=== PATIENT | female | born 1975 ===

== ENCOUNTER 2023-10-24 14:59 | Inpatient (IN) ==
[2023-10-24] MEDS ORDERED: Al Hydrox/Mg Hydrox/Simet LIQ 30 ML UDC PO PRN (16:59)
[2023-10-24] MEDS ORDERED: Nicotine GUM 2MG FRUIT FLAVOR PO PRN (17:00)
[2023-10-25 08:03] LABS: HDL Cholesterol 55.1 mg/dL
[2023-10-25] MEDS: Vitamin THERAPEUTIC TAB PO SCH (09:02)
[2023-10-25] MEDS: Paliperidone SUSTENNA 234 MG/1.5 ML IM ONE (13:15)
[2023-10-26] MEDS: OLANZapine IM (NF) 10 MG VIAL IM ONE (05:23)
[2023-10-26] MEDS: Paliperidone SUSTENNA 156 MG/1 ML IM ONE (18:14)
[2023-10-28] MEDS: Paliperidone SUSTENNA 156 MG/1 ML IM ONE (11:27)
[2023-11-05] MEDS: Lithium Carbonate ER 450mg TAB PO SCH (20:57)
[2023-11-11] MEDS: Lithium Carbonate ER 450mg TAB PO SCH (18:00)
[2023-11-14] MEDS ORDERED: Lithium Carbonate ER 450mg TAB PO SCH (21:00)
== END 2023-11-14 15:55 | disposition home or self-care (01) | DRG 753 ==
LOC: BSU 15:39
PROVIDERS: ADMIT Psychiatry & Neurology Psychiatry; ATTEND Psychiatry & Neurology Psychiatry